=== PATIENT | female | born 1945 | race Caucasian/White ===

== ENCOUNTER 2023-12-25 13:55 | Outpatient (CLI) | payer MEDICARE, BC, SELFPAY ==
--- NOTE | ~2023-12-25 | XR_ITS ---
AP and lateral views of the left hip Clinical history: Pain Findings: No acute fracture or dislocation is seen. Osseous alignment is anatomic. There is mild dege nerative change of the left hip joint. Soft tissues are unremarkable. Impression: Mild degenerative change of the left hip joint. Reviewed, dictated and finalized at location . Impression: Mild degenerative change of the left hip joint.
== END 2023-12-25 13:56 | disposition home or self-care (01) ==
LOC: ANHIMG 13:58
PROVIDERS: PCP Internal Medicine; Visit Provider Internal Medicine
DX: M16.12 Unilateral primary osteoarthritis, left hip (principal)
CPT/HCPCS: 73502